=== PATIENT | female | born 1995 | race Caucasian/White ===

== ENCOUNTER → 2016-06-01 | Outpatient (CLI) | payer BC ==
--- NOTE | 2016-06-01 09:30 | US ---
EXAMINATION TYPE: US gallbladder DATE OF EXAM: 06/01/2016 9:24 AM COMPARISON: NONE CLINICAL HISTORY: RUQ Pain R10.11. Pt states vomiting bile, diarrhea EXAM MEASUREMENTS: Liver Length: 13.0 cm Gallbladder Wall: 0.2 cm CBD: 0.3 cm Right Kidney: 9.7 x 3.7 x 3.9 cm Pancreas: wnl Liver: wnl Gallbladder: Two mobile gallstones/ wall not thickened Evidence for sonographic Beaver's sign: No CBD: wnl Right Kidney: wnl IMPRESSION: Uncomplicated cholelithiasis.
== END | disposition home or self-care (01) ==
LOC: RADUSWWP 09:11
PROVIDERS: ATTEND Family Medicine
DX: K80.20 Calculus of gallbladder without cholecystitis without obstruction (principal)
CPT/HCPCS: 76705

== ENCOUNTER 2016-06-09 04:28 | Observation (INO) | payer BC ==
[2016-06-09] MEDS ORDERED: SODIUM CHLORIDE 0.9% 1,000 ML IV STA (04:52)
[2016-06-09] MEDS ORDERED: ONDANSETRON 4 MG/2 ML VIAL IVP STA (04:52)
[2016-06-09] MEDS ORDERED: HYDROmorphone 1 MG/ML 1 ML SYRINGE IVP STA (04:52)
--- NOTE | 2016-06-09 04:58 | ED ---
General Adult HPI - General Chief complaint: Abdominal Pain Stated complaint: Abdominal Pain Time Seen by Provider: 06/09/16 04:30 Source: patient, RN notes reviewed Mode of arrival: ambulatory Limitations: no limitations - History of Present Illness Initial comments: This is a 21-year-old female who presents to the emergency department complaining of a month-long history of diarrhea 3 week history of vomiting regularly. In the last 2 days she's been having right upper quadrant abdominal pain. According to the patient she had an ultrasound approximately one week ago. Patient continues to vomit and she states she is vomiting up bile. Patient is very nauseous at this time. Patient states she thinks she has a fever but she doesn't know what her temperature. Patient states she has some mild right CVA tenderness. Patient denies any other back pain. Patient denies any dysuria hematuria urinary frequency. Patient denies being because she uses double protection. Patient denies any vaginal bleeding or discharge - Related Data Home Medications Medication Instructions Recorded Confirmed Etonogestrel/Ethinyl Estradiol 1 each VG QMONTH 06/09/16 06/09/16 [Nuvaring Vaginal Ring] Allergies Allergy/AdvReac Type Severity Reaction Status Date / Time acetaminophen [From [place]] Allergy Nausea & Verified 06/09/16 04:35 Vomiting hydrocodone [From [place]] Allergy Nausea & Verified 06/09/16 04:35 Vomiting amoxicillin [Amoxicillin] AdvReac Nausea & Verified 06/09/16 04:35 Vomiting Review of Systems ROS Statement: Those systems with pertinent positive or pertinent negative responses have been documented in the HPI. ROS Other: All systems not noted in ROS Statement are negative. Past Medical History Additional Past Medical History / Comment(s): SEASONAL ALLERGIES History of Any Multi-Drug Resistant Organisms: None Reported Past Surgical History: Adenoidectomy, Tonsillectomy Past Anesthesia/Blood Transfusion Reactions: No Reported Reaction Additional Past Anesthesia/Blood Transfusion Reaction / Comment(s): BROTHER GETS MIGRAINES POST OP Past Psychological History: No Psychological Hx Reported Smoking Status: Never smoker Past Alcohol Use History: None Reported Past Drug Use History: None Reported General Exam - General Exam Comments Initial Comments: GENERAL: Patient is well-developed and well-nourished. Patient is nontoxic and well- hydrated and is in mild distress. ENT: Neck is soft and supple. No significant lymphadenopathy is noted. Oropharynx is clear. Moist mucous membranes. Neck has full range of motion without eliciting any pain. EYES: The sclera were anicteric and conjunctiva were pink and moist. Extraocular movements were intact and pupils were equal round and reactive to light. Eyelids were unremarkable. PULMONARY: Unlabored respirations. Good breath sounds bilaterally. No audible rales rhonchi or wheezing was noted. CARDIOVASCULAR: There is a regular rate and rhythm without any murmurs gallops or rubs. ABDOMEN: Mild right upper quadrant tenderness. No palpable organomegaly was noted. There is no palpable pulsatile mass. SKIN: Skin is clear with no lesions or rashes and otherwise unremarkable. NEUROLOGIC: Patient is alert and oriented x3. Cranial nerves II through XII are grossly intact. Motor and sensory are also intact. Normal speech, volume and content. Symmetrical smile. MUSCULOSKELETAL: Normal extremities with adequate strength and full range of motion. No lower extremity swelling or edema. No calf tenderness. LYMPHATICS: No significant lymphadenopathy is noted PSYCHIATRIC: Normal psychiatric evaluation. Limitations: no limitations Course Vital Signs 06/09/16 04:30 Temperature 97.6 F Pulse Rate 76 Respiratory 18 Rate Blood Pressure 139/86 O2 Sat by Pulse 100 Oximetry Medical Decision Making - Medical Decision Making Patient was still expressing that she had 7 out of [address] Augusto Adams wanted to admit the patient so I admitted the patient wrote admitting orders consult with Dr. Beavers - Lab Data Result diagrams: 06/09/16 05:00 06/09/16 05:00 Lab Results 06/09/16 06/09/16 06/09/16 Range/Units 04:44 04:44 05:00 WBC (4.0-11.0) k/uL RBC (3.80-5.40) m/uL Hgb (11.4-16.0) gm/dL Hct (34.0-46.0) % MCV (80.0-100.0) fL MCH (25.0-35.0) pg MCHC (31.0-37.0) g/dL RDW (11.5-15.5) % Plt Count (150-450) k/uL Neutrophils % % Lymphocytes % % Monocytes % % Eosinophils % % Basophils % % Neutrophils # (1.3-7.7) k/uL Lymphocytes # (1.0-4.8) k/uL Monocytes # (0-1.0) k/uL Eosinophils # (0-0.7) k/uL Basophils # (0-0.2) k/uL Sodium 141 (137-145) mmol/L Potassium 3.7 (3.5-5.1) mmol/L Chloride 108 H (98-107) mmol/L Carbon Dioxide 21 L (22-30) mmol/L Anion Gap 12 mmol/L BUN 10 (7-17) mg/dL Creatinine 0.61 (0.52-1.04) mg/dL Est GFR (MDRD) Af Amer >60 (>60 ml/min/1.73 sqM) Est GFR (MDRD) Non-Af >60 (>60 ml/min/1.73 sqM) Glucose 83 (74-99) mg/dL Calcium 9.4 (8.4-10.2) mg/dL Total Bilirubin 0.5 (0.2-1.3) mg/dL AST 18 (14-36) U/L ALT 26 (9-52) U/L Alkaline Phosphatase 55 (38-126) U/L Total Protein 7.4 (6.3-8.2) g/dL Albumin 4.1 (3.5-5.0) g/dL Amylase 61 (30-110) U/L Lipase 96 (23-300) U/L Urine Color Yellow Urine Appearance Cloudy H (Clear) Urine pH 6.0 (5.0-8.0) Ur Specific [place] 1.023 (1.001-1.035) Urine Protein Trace H (Negative) Urine Glucose (UA) Negative (Negative) Urine Ketones Negative (Negative) Urine Blood Trace H (Negative) Urine Nitrite Negative (Negative) Urine Bilirubin Negative (Negative) Urine Urobilinogen <2.0 (<2.0) mg/dL Ur Leukocyte Esterase Small H (Negative) Urine RBC 2 (0-5) /hpf Urine WBC 6 H (0-5) /hpf Ur Squamous Epith Cells 2 (0-4) /hpf Urine Bacteria Occasional H (None) /hpf Urine Mucus Rare H (None) /hpf Urine HCG, Qual Not Detected (Not Detectd) 06/09/16 Range/Units 05:00 WBC 6.2 (4.0-11.0) k/uL RBC 4.00 (3.80-5.40) m/uL Hgb 12.2 (11.4-16.0) gm/dL Hct 37.1 (34.0-46.0) % MCV 92.7 (80.0-100.0) fL MCH 30.5 (25.0-35.0) pg MCHC 32.8 (31.0-37.0) g/dL RDW 12.4 (11.5-15.5) % Plt Count 270 (150-450) k/uL Neutrophils % 48 % Lymphocytes % 42 % Monocytes % 6 % Eosinophils % 1 % Basophils % 1 % Neutrophils # 3.0 (1.3-7.7) k/uL Lymphocytes # 2.6 (1.0-4.8) k/uL Monocytes # 0.4 (0-1.0) k/uL Eosinophils # 0.1 (0-0.7) k/uL Basophils # 0.1 (0-0.2) k/uL Sodium (137-145) mmol/L Potassium (3.5-5.1) mmol/L Chloride (98-107) mmol/L Carbon Dioxide (22-30) mmol/L Anion Gap mmol/L BUN (7-17) mg/dL Creatinine (0.52-1.04) mg/dL Est GFR (MDRD) Af Amer (>60 ml/min/1.73 sqM) Est GFR (MDRD) Non-Af (>60 ml/min/1.73 sqM) Glucose (74-99) mg/dL Calcium (8.4-10.2) mg/dL Total Bilirubin (0.2-1.3) mg/dL AST (14-36) U/L ALT (9-52) U/L Alkaline Phosphatase (38-126) U/L Total Protein (6.3-8.2) g/dL Albumin (3.5-5.0) g/dL Amylase (30-110) U/L Lipase (23-300) U/L Urine Color Urine Appearance (Clear) Urine pH (5.0-8.0) Ur Specific [place] (1.001-1.035) Urine Protein (Negative) Urine Glucose (UA) (Negative) Urine Ketones (Negative) Urine Blood (Negative) Urine Nitrite (Negative) Urine Bilirubin (Negative) Urine Urobilinogen (<2.0) mg/dL Ur Leukocyte Esterase (Negative) Urine RBC (0-5) /hpf Urine WBC (0-5) /hpf Ur Squamous Epith Cells (0-4) /hpf Urine Bacteria (None) /hpf Urine Mucus (None) /hpf Urine HCG, Qual (Not Detectd) Disposition Clinical Impression: Abdominal pain Disposition: ADMITTED IP TO THIS [facility] Time of Disposition: 06:39
[2016-06-09 05:06] LABS: Appearance,Urine Cloudy (Clear); Bacteria,Urine Occasional /hpf; Bilirubin,Urine Negative (Negative); Glucose,Urine (UA) Negative (Negative); Ketones,Urine Negative (Negative); Leukocyte Esterase,Urine Small (Negative); Mucus,Urine Rare /hpf; Nitrite,Urine Negative (Negative); Particle Count 10870; Protein,Urine Trace (Negative); RBC,Urine 2 /hpf (0-5); Specific Gravity,Urine 1.023 (1.001-1.035); Squamous Epithelial Cell,Urine 2 /hpf (0-4); UA Billing (MACRO vs. MICRO) MICRO; Urobilinogen,Urine <2.0 mg/dL (<2.0); WBC,Urine 6 /hpf (0-5)
[2016-06-09 05:21] LABS: Basophils # (A) 0.1 k/uL (0-0.2); Basophils % (A) 1 %; CH 30.8; CHCM 33.3; Eosinophils # (A) 0.1 k/uL (0-0.7); Eosinophils % (A) 1 %; HCT 37.1 % (34.0-46.0); HDW 2.08; HGB 12.2 gm/dL (11.4-16.0); Luc # (Auto) 0.17; Luc % (Auto) 3; Lymphocytes # (A) 2.6 k/uL (1.0-4.8); Lymphocytes % (A) 42 %; MCH 30.5 pg (25.0-35.0); MCHC 32.8 g/dL (31.0-37.0); MCV 92.7 fL (80.0-100.0); Monocytes # (A) 0.4 k/uL (0-1.0); Monocytes % (A) 6 %; Neutrophils % (A) 48 %; RDW 12.4 % (11.5-15.5); WBC 6.2 k/uL (4.0-11.0); WBC (Perox) 6.41
[2016-06-09 05:33] LABS: ALT 26 U/L (9-52); AST 18 U/L (14-36); Alkaline Phosphatase 55 U/L (38-126); Amylase 61 U/L (30-110); Anion Gap 12 mmol/L; Blood Urea Nitrogen 10 mg/dL (7-17); Calcium 9.4 mg/dL (8.4-10.2); Carbon Dioxide 21 mmol/L (22-30); Chloride 108 mmol/L (98-107); Glucose 83 mg/dL (74-99); Non-African American GFR(MDRD) >60 (>60 ml/min/1.73 sqM); Potassium 3.7 mmol/L (3.5-5.1); Sodium 141 mmol/L (137-145); Total Bilirubin 0.5 mg/dL (0.2-1.3); Total Protein 7.4 g/dL (6.3-8.2)
--- NOTE | 2016-06-09 06:23 | XR ---
EXAM: XR Abdomen, 1 View CLINICAL HISTORY: Reason: abdominal pain TECHNIQUE: Frontal supine view of the abdomen/pelvis. COMPARISON: No relevant prior studies available. FINDINGS: Gastrointestinal tract: Mild nonspecific small bowel loops mid and lower abdomen. No dilation. No air-fluid levels. No free air. Bones/joints: Unremarkable. Lung bases clear. IMPRESSION: Nonspecific gassy small bowel. No bowel obstruction. No free air.
[2016-06-09] MEDS: ONDANSETRON 4 MG/2 ML VIAL IVP PRN (11:34)
[2016-06-09] MEDS: HYDROmorphone 1 MG/ML 1 ML SYRINGE IVP PRN ×5 (11:41→22:19)
--- NOTE | 2016-06-09 11:46 | NM ---
EXAMINATION TYPE: NM hepatobiliary w EF DATE OF EXAM: 06/09/2016 11:30 AM COMPARISON: Correlation ultrasound 06/01/2016 HISTORY: 21 year-old female right upper quadrant abdominal pain TECHNIQUE: After the intravenous administration of 5.5 mCi Tc 99m Mebrofenin hepatobiliary scintigrap hy is performed. Immediate images post injection. FINDINGS: There is satisfactory initial accumulation of tracer by the liver. The gallbladder is faintly visual ized at 58 minutes. Delayed images were performed at 75 and 90 minutes which show progressive gallbla dder filling. The small bowel activity is noted within 6 minutes. At 90 minutes, 8 ounces of oral en sure plus is given to mimic CCK and gallbladder ejection fraction is calculated at 32 %, diminished b elow the normal range (35-80%).. IMPRESSION: 1. No scintigraphic evidence for acute cholecystitis. 2. Diminished gallbladder ejection fraction. Differential considerations include chronic cholecystiti s and biliary dyskinesia.
[2016-06-09] MEDS: PANTOPRAZOLE 40 MG/10 ML VIAL IVP SCH (12:16)
[2016-06-09] MEDS: SODIUM CHLORIDE 0.9% 1,000 ML IV ONE ×2 (12:18→21:12)
[2016-06-09 14:17] VITALS: BMI 25.6
--- NOTE | 2016-06-09 17:37 | P.GSCN ---
History of Present Illness Consult date: 06/09/16 Reason for Consult: Abdominal pain Requesting physician: Darrian Souza History of present illness: Patient is a 21-year-old white female, referred from Dr. Adams in the outpatient setting, with no significant medical history. Patient presented to the emergency department with complains of a month-long history of diarrhea alternating with constipation and vomiting. All the last 2 days prior to admission patient has been having progressive right upper quadrant abdominal pain radiating into her back. Patient did have an ultrasound approximately one week ago with evidence of cholelithiasis. No history of chills, fevers, chest pain, melena, hematemesis, or hematemesis. KUB x-ray with evidence of nonobstructive bowel pattern. Patient did undergo a HIDA scan with evidence of biliary dyskinesia with an ejection fraction of 32%. No evidence of leukocytosis. Patient afebrile. Hemodynamically stable. C. difficile negative. Past Medical History Additional Past Medical History / Comment(s): Rare SEASONAL ALLERGIES History of Any Multi-Drug Resistant Organisms: None Reported Past Surgical History: Adenoidectomy, Tonsillectomy Additional Past Surgical History / Comment(s): [place] teeth extraction with anesthesia. Past Anesthesia/Blood Transfusion Reactions: No Reported Reaction Additional Past Anesthesia/Blood Transfusion Reaction / Comm: BROTHER GETS MIGRAINES POST OP Past Psychological History: No Psychological Hx Reported Additional Psychological History / Comment(s): Pt resides with parents. She is independent. She works midnights at [employer]. Smoking Status: Never smoker Past Alcohol Use History: None Reported Past Drug Use History: None Reported - Past Family History Mother Family Medical History: No Reported History Father Family Medical History: Hypertension Medications and Allergies Home Medications Medication Instructions Recorded Confirmed Type Acetaminophen Tab [Tylenol Tab] 650 mg PO Q6H PRN 06/09/16 06/09/16 History Etonogestrel/Ethinyl Estradiol 1 ring VAGINAL QMONTH 06/09/16 06/09/16 History [Nuvaring Vaginal Ring] Allergies Allergy/AdvReac Type Severity Reaction Status Date / Time acetaminophen [From [place]] AdvReac Nausea & Verified 06/09/16 08:47 Vomiting amoxicillin [Amoxicillin] AdvReac Nausea & Verified 06/09/16 08:47 Vomiting hydrocodone [From [place]] AdvReac Nausea & Verified 06/09/16 08:47 Vomiting Surgical - Exam Vital Signs Temp Pulse Resp BP Pulse Ox 97.6 F 76 18 139/86 100 06/09/16 04:30 06/09/16 04:30 06/09/16 04:30 06/09/16 04:30 06/09/16 04:30 GENERAL: Pt awake and alert, well-nourished, and in no acute distress. HEAD: Atraumatic, normocephalic. EYES: Pupils equal, round, and reactive to light, sclera anicteric, conjunctiva are normal. ENT: Moist mucous membranes. NECK:Supple without lymphadenopathy or JVD. LUNGS: Breath sounds clear to auscultation bilaterally. No wheezes, rales, or rhonchi. HEART: Heart S1, S2, no S3 or S4. Regular rate and rhythm. No murmurs, rubs or gallops. ABDOMEN: Soft, moderate right upper quadrant and epigastric tenderness, nondistended, normoactive bowel sounds. No guarding, no rebound. No masses or organomegaly appreciated. EXTREMITIES: Palpable peripheral pulses. No edema. No calf tenderness. NEUROLOGICAL: Pt oriented x 3. Results - Labs 06/09/16 05:00 06/09/16 05:00 - Imaging Abdominal x-ray: report reviewed Assessment and Plan Plan: Impression: 1. Chronic cholecystitis with cholelithiasis. 2. Biliary dyskinesia. Plan: Patient will undergo laparoscopic cholecystectomy tomorrow. Patient will have a low-fat diet, nothing by mouth after midnight. Continue supportive treatment and pain management. Continue GI and DVT prophylaxis. Continue IV hydration. Repeat CBC and BMP in a.m. Continue to follow with medical team. The above impression and plan have been discussed and directed by Dr. Beavers. Daniele DOWLING acting as scribe for Dr. Beavers.
[2016-06-10] MEDS: HYDROmorphone 1 MG/ML 1 ML SYRINGE IVP PRN ×7 (01:38→23:51)
[2016-06-10 06:37] LABS: Basophils % (A) 0 %; CH 30.8; CHCM 32.6; Eosinophils % (A) 1 %; HCT 34.8 % (34.0-46.0); HDW 2.06; HGB 11.2 gm/dL (11.4-16.0); Luc % (Auto) 2; Lymphocytes % (A) 44 %; MCH 30.8 pg (25.0-35.0); MCHC 32.4 g/dL (31.0-37.0); MCV 95.1 fL (80.0-100.0); Mean Platelet Volume 7.9; Monocytes # (A) 0.3 k/uL (0-1.0); Monocytes % (A) 6 %; Neutrophils # (A) 2.1 k/uL (1.3-7.7); Neutrophils % (A) 47 %; RBC 3.66 m/uL (3.80-5.40); RDW 12.4 % (11.5-15.5); WBC 4.5 k/uL (4.0-11.0); WBC (Perox) 4.55
[2016-06-10] MEDS: SODIUM CHLORIDE 0.9% 1,000 ML IV ONE (06:52)
[2016-06-10 06:55] LABS: Anion Gap 6 mmol/L; Blood Urea Nitrogen 6 mg/dL (7-17); Calcium 9.1 mg/dL (8.4-10.2); Carbon Dioxide 23 mmol/L (22-30); Chloride 108 mmol/L (98-107); Glucose 78 mg/dL (74-99); Non-African American GFR(MDRD) >60 (>60 ml/min/1.73 sqM); Potassium 4.3 mmol/L (3.5-5.1); Sodium 137 mmol/L (137-145)
[2016-06-10] MEDS: ONDANSETRON 4 MG/2 ML VIAL IVP PRN ×2 (07:00→13:54)
--- NOTE | 2016-06-10 08:48 | HP ---
DATE OF ADMISSION: 06/09/2016 CHIEF COMPLAINT: A 21-year-old white female presents with a month long history of diarrhea and vomiting. She had a normal ultrasound of the gallbladder recently. Due to progressive nausea, vomiting with food intake and significant pain and some mild right CVA tenderness, she is admitted to the hospital, unable to keep any food or liquid down. Home medications include: 1. Estrogen. 2. [place]. 3. Amoxicillin. REVIEW OF SYSTEMS: Fourteen-point review of systems negative except for as mentioned in HPI. She has seasonal allergies. Surgical adenoidectomy, tonsillectomy, gets migraines postop. She has never smoked, never alcohol. GENERAL: She is well developed, well-nourished white female in no acute distress. NECK: Supple. No mass. Ophthalmologic: Pupils equal, and reactive to light and accommodation. CARDIOVASCULAR: S1, S2. LUNGS: Clear. GI: Some mild tenderness to palpation. Diffuse. SKIN: No rash, excoriation, bruising. NEUROLOGIC: Alert and oriented x3. ( ) mood and affect. Temperature 97.6, pulse 76, respiratory rate 18, blood pressure 130s/80s. O2 100% on room air. White count 6.2, hemoglobin 12.2. Sodium 134, potassium 3.7. UA small leukocyte esterase. ASSESSMENT: Atypical abdominal pain, rule out acute cholecystitis which is likely gastroenteritis possible ulcerative colitis or Crohn's. IV fluids. Possible EGD and colonoscopy if HIDA scan is negative. Surgical consultation in place.
[2016-06-10] MEDS: PANTOPRAZOLE 40 MG/10 ML VIAL IVP SCH (10:15)
[2016-06-10] MEDS ORDERED: LIDOCAINE 1% INJ 10MG/ML (20 ML MDV) ONE ×2 (10:22→14:07)
[2016-06-10] MEDS ORDERED: IV FLUID CONTINUATION 300 ML IV ONE (13:42)
[2016-06-10] MEDS ORDERED: HEPARIN SODIUM,PORCINE 5,000 UNIT/ML 1 ML VIAL SQ ONE (13:52)
[2016-06-10] MEDS ORDERED: BUPIVACAIN-EPI 0.25%-1:200,000 30 ML VIAL SQ ONE (14:07)
[2016-06-10] MEDS ORDERED: NEOSTIGMINE 1 MG/ML 10 ML VIAL ONE (14:07)
[2016-06-10] MEDS ORDERED: SUCCINYLCHOLINE CHLORIDE 100 MG/5 ML SYR IV ONE (14:07)
[2016-06-10] MEDS ORDERED: ROCURONIUM BROMIDE 10 MG/ML 10 ML VIAL IV ONE (14:07)
[2016-06-10] MEDS ORDERED: PROPOFOL 10 MG/ML 20 ML VIAL IV ONE (14:07)
[2016-06-10] MEDS ORDERED: MIDAZOLAM 2 MG/2 ML VIAL ONE (14:07)
[2016-06-10] MEDS ORDERED: GLYCOPYRROLATE 0.2 MG/ML 2 ML VIAL ONE (14:07)
[2016-06-10] MEDS ORDERED: fentaNYL (PF) 50 MCG/ML 2 ML AMP ONE (14:07)
[2016-06-10] MEDS ORDERED: LACTATED RINGERS 1,000 ML IV ONE ×2 (14:16→14:55)
[2016-06-10] MEDS ORDERED: SODIUM CHLORIDE 0.9% 100 ML with CLINDAMYCIN 600 MG IV ONE ×2 (14:20)
[2016-06-10] MEDS ORDERED: HYDROcodone/APAP 5-325MG 1 EACH TAB PO PRN (14:55)
[2016-06-10] MEDS ORDERED: ACETAMINOPHEN TAB 325 MG TAB PO PRN (14:55)
[2016-06-10] MEDS ORDERED: NALOXONE 0.4 MG/ML 1 ML VIAL IV PRN (14:55)
--- NOTE | 2016-06-10 14:55 | P.OP ---
Date of Procedure: 06/10/16 Preoperative Diagnosis: Cholecystitis Postoperative Diagnosis: Cholecystitis Procedure(s) Performed: Laparoscopic cholecystectomy Anesthesia: OLEG Surgeon: Ammon Beavers Estimated Blood Loss (ml): 5 Pathology: other (Gallbladder) Condition: stable Disposition: PACU Description of Procedure: The patient was placed on the operating table. The patient received a general endotracheal tube anesthesia. The patients abdomen was prepped and draped in the usual sterile fashion. Through an infraumbilical stab incision, the fascia of the anterior abdominal wall was grasped with a pair of Kochers and then the Veress needle was placed in the peritoneal cavity. Position of the Veress needle was confirmed with positive drop test. The abdomen was then insufflated. After adequate insufflation, the 10 mm trocar was placed in the peritoneal cavity. Following this the laparoscope was placed in the peritoneal cavity. The patient was placed in the head-up, right side up position and then a 5 mm trocar was placed in the right lateral and right subcostal position under direct visualization. A 8 mm trocar was placed in the epigastric position. The gallbladder was grasped in the fundus and infundibulum. Traction on the gallbladder was placed in the lateral and the cephalad positions. The triangle of Calot was visualized.. The cystic duct was bluntly dissected until the union of the cystic duct and common bile duct was seen. The cystic duct was then divided and sealed with the Harmonic scissors. A PDS Endoloop was then placed throughout the cystic duct stump. The cystic artery divided and sealed with the Harmonic scissors. The gallbladder was then removed from the liver bed using Harmonic scissors. The gallbladder was then extracted through the epigastric port site. Operative field was checked for any bleeding spots and Harmonic scissors was used to coagulate the liver bed. The abdomen was irrigated. The trocars were removed. The skin was closed using interrupted 3-0 Vicryl suture. Dermabond dressing were applied. The patient tolerated the procedure well.
[2016-06-10] MEDS ORDERED: HYDROmorphone 1 MG/ML 1 ML SYRINGE IVP ONE ×2 (15:16→15:26)
[2016-06-10] MEDS ORDERED: MEPERIDINE 50 MG/ML SYRINGE IVP ONE (15:50)
[2016-06-10] MEDS: KETOROLAC 30 MG/ML 1 ML VIAL IVP SCH (21:17)
[2016-06-11] MEDS: KETOROLAC 30 MG/ML 1 ML VIAL IVP SCH ×3 (02:59→08:56)
[2016-06-11] MEDS: HYDROmorphone 1 MG/ML 1 ML SYRINGE IVP PRN ×2 (06:27→09:36)
[2016-06-11 08:39] VITALS: BP 100/58; PULSE 66; RESP 22; TEMP 99.2
[2016-06-11] MEDS: PANTOPRAZOLE 40 MG/10 ML VIAL IVP SCH (08:57)
--- NOTE | 2016-06-11 09:29 | PN ---
DATE OF SERVICE: 06/10/2016 SUBJECTIVE: 21-year-old white female who was scheduled for a cholecystectomy today. Her abdominal pain is still persisting. Some nausea, vomiting. She is on p.o. Vitals signs are stable. CARDIOVASCULAR: S1, S2. LUNGS: Clear. GI: Soft. HEMATOLOGIC: Negative Homans. PSYCHIATRIC: Fair mood and affect. ASSESSMENT: Preop cholecystectomy for acute cholecystitis with acute abdominal pain. The patient is stable for surgery.
--- NOTE | 2016-06-17 22:09 | DS ---
DATE OF ADMISSION: 06/09/2016 DATE OF DISCHARGE: 06/11/2016 DISCHARGE DIAGNOSES: 1. Acute abdominal pain. 2. Acute cholecystitis. 3. Anxiety. SURGICAL PROCEDURE: Cholecystectomy. HOSPITAL COURSE OF EVENTS: This is a white female who was admitted to the hospital with acute cholecystitis. HIDA scan showing gallbladder sludge. She was taken for surgery. Her abdominal pain greatly improved status post surgery. Her hemoglobin was a little bit low at 11.2 on discharge. MEDICATION: She is going home with some pain medications ( ) once in a while. Go back on her NuvaRing vaginal ring. [place]ctor for pain. Follow up in the office in a day or two.
== END 2016-06-11 12:16 | disposition home or self-care (01) ==
LOC: EC 04:28 → 6PED 06:40
PROVIDERS: ADMIT Family Medicine; ATTEND Family Medicine
DX: K80.12 Calculus of gallbladder with acute and chronic cholecystitis without obstruction (principal); K82.8 Other specified diseases of gallbladder; Z79.3 Long term (current) use of hormonal contraceptives; Z88.0 Allergy status to penicillin; Z88.5 Allergy status to narcotic agent; Z82.49 Family history of ischemic heart disease and other diseases of the circulatory system
CPT/HCPCS: 96374; 96375; 96361; 99285; 36415; 81025 ×2; 88304; 80053; 80048; 82150; 83690; 85025 ×2; 81001; 87045; 87329; 87328; 87046; 74000; 78226; 47562; G0378 ×3; A9537; J2250; J1644; J2710; J2175; J2405 ×2; J2001; J3010; J1885 ×2; J1170 ×3; J0330; J2704; C9113 ×3; 87324

== ENCOUNTER 2016-12-25 13:09 | Emergency (ER) | payer BC, OTHER ==
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
[2016-12-25] MEDS ORDERED: KETOROLAC 30 MG/ML 1 ML VIAL IVP STA (14:23)
[2016-12-25] MEDS ORDERED: ONDANSETRON 4 MG/2 ML VIAL IVP STA (14:23)
[2016-12-25 14:45] LABS: Basophils % (A) 0 %; CH 29.4; CHCM 32.3; Eosinophils % (A) 0 %; HCT 33.9 % (34.0-46.0); HDW 2.15; Luc # (Auto) 0.13; Luc % (Auto) 1; Lymphocytes # (A) 2.5 k/uL (1.0-4.8); Lymphocytes % (A) 26 %; MCH 29.8 pg (25.0-35.0); MCHC 32.6 g/dL (31.0-37.0); MCV 91.4 fL (80.0-100.0); Mean Platelet Volume 7.6; Monocytes # (A) 0.7 k/uL (0-1.0); Monocytes % (A) 8 %; Neutrophils % (A) 64 %; WBC 9.4 k/uL (4.0-11.0); WBC (Perox) 9.44
[2016-12-25 14:57] LABS: Appearance,Urine Cloudy (Clear); Bacteria,Urine Occasional /hpf; Bilirubin,Urine Negative (Negative); Glucose,Urine (UA) Negative (Negative); Ketones,Urine Negative (Negative); Leukocyte Esterase,Urine Moderate (Negative); Mucus,Urine Few /hpf; Nitrite,Urine Negative (Negative); Particle Count 13276; Protein,Urine 1+ (Negative); RBC,Urine 106 /hpf (0-5); Specific Gravity,Urine 1.027 (1.001-1.035); Squamous Epithelial Cell,Urine 12 /hpf (0-4); UA Billing (MACRO vs. MICRO) MICRO; WBC,Urine 3 /hpf (0-5)
[2016-12-25 14:58] LABS: ALT 61 U/L (9-52); AST 58 U/L (14-36); Alkaline Phosphatase 59 U/L (38-126); Anion Gap 10 mmol/L; Blood Urea Nitrogen 8 mg/dL (7-17); Calcium 8.9 mg/dL (8.4-10.2); Carbon Dioxide 20 mmol/L (22-30); Chloride 109 mmol/L (98-107); Glucose 85 mg/dL (74-99); Non-African American GFR(MDRD) >60 (>60 ml/min/1.73 sqM); Potassium 3.8 mmol/L (3.5-5.1); Sodium 139 mmol/L (137-145); Total Bilirubin <0.1 mg/dL (0.2-1.3); Total Protein 6.9 g/dL (6.3-8.2)
[2016-12-25 15:12] LABS: Creatine Kinase 315 U/L (30-135)
[2016-12-25 15:25] LABS: Troponin I <0.012 ng/mL (0.000-0.034)
[2016-12-25 15:50] VITALS: TEMP 97.1
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
[2016-12-25 17:25] VITALS: BP 131/66; PULSE 67; RESP 16
== END 2016-12-25 17:25 | disposition home or self-care (01) ==
LOC: EC 13:09
DX: S00.83XA Contusion of other part of head, initial encounter (principal); S29.9XXA Unspecified injury of thorax, initial encounter; R31.9 Hematuria, unspecified; Z79.899 Other long term (current) drug therapy; Z88.0 Allergy status to penicillin; Z88.5 Allergy status to narcotic agent; Z88.8 Allergy status to other drugs, medicaments and biological substances; V47.6XXA Car passenger injured in collision with fixed or stationary object in traffic accident, initial encounter; Y92.410 Unspecified street and highway as the place of occurrence of the external cause
CPT/HCPCS: 36415; 93005; 86900; 86901; 80053; 82550; 82553; 84484; 85025; 86850; 81001; 81025; 71100; 70486; 99284; 96374; 96375; J2405; J1885